=== PATIENT | female | born 1995 | race Caucasian/White ===

== ENCOUNTER 2018-05-26 18:55 | Emergency (ER) | payer MEDICAID ==
[~2018-05-26] VITALS: Ht 165.1 cm; Wt 97.3 kg
[2018-05-26] MEDS ORDERED: ONDANSETRON ODT 4 MG PO ONE (19:30)
[2018-05-26 19:33] LABS: BASOPHILS # (AUTO) 0.05 x10^3/uL (0-0.1); BASOPHILS % (AUTO) 0 % (0-1); EOSINOPHILS # (AUTO) 0.14 x10^3/uL (0-0.4); EOSINOPHILS % (AUTO) 1 % (1-7); LYMPHOCYTES % (AUTO) 22 % (22-44); MD NO; MEAN CORPUSCULAR HEMOGLOBIN 29.7 pg (27.0-34.8); MEAN CORPUSCULAR HGB CONC 34.6 g/dL (32.4-35.8); MEAN CORPUSCULAR VOLUME 85.8 fL (80-100); MEAN PLATELET VOLUME 9.5 fL (7.4-10.4); MONOCYTES # (AUTO) 0.57 x10^3/uL (0.2-0.8); MONOCYTES % (AUTO) 5 % (2-9); NEUTROPHILS # (AUTO) 8.17 x10^3/uL (1.8-6.8); NEUTROPHILS % (AUTO) 72 % (42-75); PLATELET COUNT 277 x10^3/uL (130-400); RED BLOOD COUNT 4.64 x10^6/uL (3.82-5.3); RED CELL DISTRIBUTION WIDTH 12.9 % (9.6-15.2)
[2018-05-26 19:44] LABS: ALANINE AMINOTRANSFERASE 45 U/L (12-78); ALBUMIN 3.8 g/dL (3.4-5.0); ANION GAP 10 mmol/L (5-15); CALCIUM 8.7 mg/dL (8.5-10.1); CHLORIDE 111 mmol/L (98-107); CREATININE 0.82 mg/dL (0.55-1.02)
[2018-05-26 19:49] LABS: ALKALINE PHOSPHATASE 69 U/L (45-117); BILIRUBIN,TOTAL 0.3 mg/dL (0.2-1.0); TOTAL PROTEIN 7.6 g/dL (6.4-8.2)
[2018-05-26] MEDS ORDERED: ONDANSETRON ODT 4 MG ONE (19:50)
[2018-05-26 20:16] LABS: MICROSCOPIC INDICATED
[2018-05-26 20:17] LABS: CULTURE INDICATED? YES
[2018-05-26 21:02] VITALS: BP 112/68
== END 2018-05-26 21:31 | disposition home or self-care (01) ==
LOC: ED 21:25
DX: R10.11 Right upper quadrant pain (principal); R10.13 Epigastric pain
CPT/HCPCS: 36415; 76700; 76830; 80053; 81001; 84702; 85025; 86901; 87086; 99285

== ENCOUNTER 2018-07-22 12:06 | Emergency (ER) | payer MEDICAID ==
[~2018-07-22] VITALS: Ht 165.1 cm; Wt 98.7 kg
[2018-07-22 12:09] VITALS: BP 110/72
--- NOTE | 2018-07-22 12:26 | NUR ---
FIRST CONTACT WITH PATIENT, C/O ABD PAIN STARTING LAST WEDNESDAY AND VAGINAL SPOTTING X 4 AFTER WIPING TODAY, LAB AT BEDSIDE. 8 WEEKS PER PATIENT. PATIENT HAD 8 MONTHS AGO, NORMAL VAGINAL DELIVERY W/O COMPLICATIONS. SKIN WARM, PINK, DRY, NADN. LAB AT BEDSIDE, CALL LIGHT WITHIN REACH.
--- NOTE | 2018-07-22 12:40 | NUR ---
PATIENT AMB TO BATHROOM WITH STEADY GAIT, SMALL AMOUNT OF URINE COLLECTED AND WALKED TO LAB. PATIENT TO US VIA [employer] AT THIS TIME, [id number].
[2018-07-22 12:57] LABS: BASOPHILS # (AUTO) 0.03 x10^3/uL (0-0.1); BASOPHILS % (AUTO) 0 % (0-1); EOSINOPHILS # (AUTO) 0.06 x10^3/uL (0-0.4); EOSINOPHILS % (AUTO) 1 % (1-7); LYMPHOCYTES % (AUTO) 19 % (22-44); MD NO; MEAN CORPUSCULAR HEMOGLOBIN 29.6 pg (27.0-34.8); MEAN CORPUSCULAR HGB CONC 34.3 g/dL (32.4-35.8); MEAN CORPUSCULAR VOLUME 86.4 fL (80-100); MEAN PLATELET VOLUME 9.9 fL (7.4-10.4); MONOCYTES # (AUTO) 0.43 x10^3/uL (0.2-0.8); MONOCYTES % (AUTO) 4 % (2-9); NEUTROPHILS # (AUTO) 7.52 x10^3/uL (1.8-6.8); NEUTROPHILS % (AUTO) 76 % (42-75); PLATELET COUNT 220 x10^3/uL (130-400); RED BLOOD COUNT 4.53 x10^6/uL (3.82-5.3); RED CELL DISTRIBUTION WIDTH 13.2 % (9.6-15.2)
[2018-07-22 13:05] LABS: ALBUMIN 3.3 g/dL (3.4-5.0); ANION GAP 4 mmol/L (5-15); CALCIUM 8.9 mg/dL (8.5-10.1); CHLORIDE 110 mmol/L (98-107)
[2018-07-22 13:07] LABS: MICROSCOPIC AUTO
[2018-07-22 13:10] LABS: CULTURE INDICATED? YES
[2018-07-22 13:22] LABS: CREATININE 0.58 mg/dL (0.55-1.02)
--- NOTE | 2018-07-22 13:52 | NUR ---
NEW ORDERS TO REPEAT UA, PATIENT AMB WITH STEADY GAIT TO BATHROOM, SMALL AMOUNT OF URINE COLLECTED AND WALKED TO LAB.
[2018-07-22 14:18] LABS: MICROSCOPIC INDICATED
[2018-07-22 14:20] LABS: CULTURE INDICATED? YES
--- NOTE | 2018-07-22 14:44 | NUR ---
RESULTS BACK, CHART UP FOR RECHECK.
--- NOTE | 2018-07-22 15:10 | NUR ---
Patient/Caregiver given discharge instructions and they have confirmed that they understand the instructions. Patient ambulatory with steady gait.
--- NOTE | 2018-07-22 15:11 | NUR ---
Patient/Caregiver given discharge instructions and they have confirmed that they understand the instructions. Patient ambulatory with steady gait. No need for rhogam per ERP.
== END 2018-07-22 15:13 | disposition home or self-care (01) ==
LOC: ED 14:36
DX: O20.9 Hemorrhage in early pregnancy, unspecified (principal); Z3A.12 12 weeks gestation of pregnancy
CPT/HCPCS: 36415; 76801; 80048; 81001; 82040; 84702; 85025; 86901; 87086; 99284

== ENCOUNTER 2020-06-10 14:06 | Emergency (ER) | payer MEDICAID ==
[~2020-06-10] VITALS: Ht 165.1 cm; Wt 106.2 kg
[2020-06-10 14:18] VITALS: BP 123/80
[2020-06-10 14:46] LABS: ANION GAP 5 mmol/L (5-15); CALCIUM 8.6 mg/dL (8.5-10.1); CHLORIDE 109 mmol/L (98-107)
[2020-06-10 14:48] LABS: BASOPHILS % (AUTO) 1 % (0-1); EOSINOPHILS % (AUTO) 0 % (1-7); LYMPHOCYTES % (AUTO) 43 % (22-44); MD NO; MEAN CORPUSCULAR HEMOGLOBIN 30.1 pg (27.0-34.8); MEAN CORPUSCULAR HGB CONC 34.4 g/dL (32.4-35.8); MONOCYTES % (AUTO) 12 % (2-9); NEUTROPHILS % (AUTO) 44 % (42-75); PLATELET COUNT 201 x10^3/uL (130-400); RED BLOOD COUNT 4.97 x10^6/uL (3.82-5.3)
--- NOTE | 2020-06-10 17:27 | NUR ---
NOT IN LOBBY
--- NOTE | 2020-06-10 17:32 | NUR ---
DISCUSSED CXR RESULT WITH DR ROWELL AND ATTEMPTED TO CALL PATIENT WITH RESULT. NO ANSWER. LEFT [facility] [place] FOR HER TO CALL US BACK.
--- NOTE | 2020-06-10 17:58 | NUR ---
NO ANSWER IN LOBBY
== END 2020-06-10 17:59 | disposition left against medical advice (07) ==
LOC: ED 16:00
DX: R05 Cough (principal); R50.9 Fever, unspecified
CPT/HCPCS: 36415; 71045; 80048; 82040; 84703; 85025; 99284

== ENCOUNTER 2020-08-29 17:39 | Emergency (ER) | payer MEDICAID, OTHER ==
[~2020-08-29] VITALS: Ht 162.6 cm; Wt 114.0 kg
--- NOTE | 2020-08-29 17:53 | NUR ---
TASK RN: PT BIB VIA POV. PER PT SHE HAD A POSITIVE HOME TEST 08/15/20, LMP 05/31/21. PER PT HER PERIODS ARE IRREGULAR. PT HAS HAD VAGINAL SPOTTING AND CRAMPING X 2 DAYS. PER PT CRAMPING IS BILAT UPPER ABD QUAD AND IS WORSE WITH MOVEMENT. PT RESTING IN [facility], MONITORING IN PLACE, NADN AT THIS TIME.
[2020-08-29 18:39] LABS: BASOPHILS % (AUTO) 1 % (0-1); EOSINOPHILS % (AUTO) 1 % (1-7); LYMPHOCYTES % (AUTO) 20 % (22-44); MEAN CORPUSCULAR HEMOGLOBIN 30.1 pg (27.0-34.8); MEAN CORPUSCULAR HGB CONC 34.4 g/dL (32.4-35.8); MEAN PLATELET VOLUME 8.7 fL (7.4-10.4); MONOCYTES % (AUTO) 5 % (2-9); NEUTROPHILS % (AUTO) 73 % (42-75); PLATELET COUNT 226 x10^3/uL (130-400); RED BLOOD COUNT 4.25 x10^6/uL (3.82-5.3); RED CELL DISTRIBUTION WIDTH 12.8 % (9.6-15.2)
[2020-08-29 18:40] LABS: MD NO
[2020-08-29 18:51] LABS: ANION GAP 8 mmol/L (5-15); CALCIUM 8.5 mg/dL (8.5-10.1); CHLORIDE 112 mmol/L (98-107); CREATININE 0.61 mg/dL (0.55-1.02)
--- NOTE | 2020-08-29 20:03 | NUR ---
US AT BEDSIDE PT IN BED WITH NO SIGNS OR SYMPTOMS OF ACUTE DISTRESS NOTED RESPIRATIONS EVEN AND UNLABORED
[2020-08-29 20:15] LABS: MICROSCOPIC INDICATED
[2020-08-29 20:55] VITALS: BP 109/74
== END 2020-08-29 21:07 | disposition home or self-care (01) ==
LOC: ED 20:55
DX: O20.0 Threatened abortion (principal); Z3A.11 11 weeks gestation of pregnancy
CPT/HCPCS: 36415; 76801; 80048; 81001; 82040; 84702; 85025; 86901; 87077; 87086; 87186; 99284

== ENCOUNTER 2021-01-07 18:57 | Outpatient (CLI) | payer OTHER, MEDICAID ==
[~2021-01-07] VITALS: Ht 165.1 cm; Wt 102.2 kg
[2021-01-07 20:01] LABS: MICROSCOPIC INDICATED
[2021-01-07 20:06] LABS: AMPHETAMINE SCREEN, URINE Negative (Negative); BARBITURATE SCREEN, URINE Negative (Negative); BENZODIAZEPINE SCREEN, URINE Negative (Negative); CANNABINOID SCREEN, URINE Negative (Negative); COCAINE SCREEN, URINE Negative (Negative); METHADONE SCREEN, URINE Negative (Negative); OPIATE SCREEN, URINE Negative (Negative)
[2021-01-07] MEDS ORDERED: NITROFURANTOIN (MACROBID) 100 MG CAPSULE PO ONE (22:08)
[2021-01-07] MEDS ORDERED: FENTANYL PF 100 MCG/2ML ONE (23:03)
== END 2021-01-07 23:59 | disposition home or self-care (01) ==
LOC: LDOP 18:57
PROVIDERS: ATTEND Obstetrics & Gynecology
DX: O26.893 Other specified pregnancy related conditions, third trimester (principal); R10.30 Lower abdominal pain, unspecified; O23.43 Unspecified infection of urinary tract in pregnancy, third trimester; Z3A.34 34 weeks gestation of pregnancy
CPT/HCPCS: 59025; 76819; 80307; 81001; 87077; 87086; 87186

== ENCOUNTER 2021-02-16 09:53 | Outpatient (CLI) | payer MEDICAID, OTHER ==
[~2021-02-16] VITALS: Ht 165.1 cm; Wt 115.0 kg
[2021-02-16 11:05] LABS: MICROSCOPIC INDICATED
[2021-02-16 11:06] LABS: AMPHETAMINE SCREEN, URINE Negative (Negative); BARBITURATE SCREEN, URINE Negative (Negative); BENZODIAZEPINE SCREEN, URINE Negative (Negative); CANNABINOID SCREEN, URINE Negative (Negative); COCAINE SCREEN, URINE Negative (Negative); METHADONE SCREEN, URINE Negative (Negative); OPIATE SCREEN, URINE Negative (Negative)
[2021-02-16] MEDS ORDERED: NITROFURANTOIN (MACROBID) 100 MG CAPSULE PO SCH (11:30)
[2021-02-16 14:40] VITALS: BP 114/78
== END 2021-02-16 15:16 | disposition home or self-care (01) ==
LOC: LDOP 09:53
PROVIDERS: ATTEND Obstetrics & Gynecology Female Pelvic Medicine and Reconstructive Surgery
DX: O47.03 False labor before 37 completed weeks of gestation, third trimester (principal); O26.893 Other specified pregnancy related conditions, third trimester; R10.30 Lower abdominal pain, unspecified; Z3A.36 36 weeks gestation of pregnancy
CPT/HCPCS: 59025; 76805; 80307; 81001; 84112; 87081

== ENCOUNTER → 2021-03-03 | Outpatient (CLI) | payer MEDICAID ==
[~2021-03-03] VITALS: Ht 165.1 cm; Wt 116.4 kg
[2021-03-03 17:15] VITALS: BP 112/72
[2021-03-03 18:08] LABS: MICROSCOPIC INDICATED
== END | disposition home or self-care (01) ==
LOC: LDOP 16:27
PROVIDERS: ATTEND Obstetrics & Gynecology
DX: O26.893 Other specified pregnancy related conditions, third trimester (principal); R10.9 Unspecified abdominal pain; Z3A.38 38 weeks gestation of pregnancy
CPT/HCPCS: 59025; 81001; 87077; 87086